=== PATIENT | male | born 1990 | race Caucasian/White ===

== ENCOUNTER 2017-10-25 12:20 | Emergency (ER) | payer SELFPAY ==
[~2017-10-25] VITALS: Ht 165.1 cm; Wt 64.0 kg
[2017-10-25 12:22] VITALS: BP 109/72
== END 2017-10-25 13:45 | disposition home or self-care (01) ==
LOC: ER 13:34
DX: F15.10 Other stimulant abuse, uncomplicated (principal); R45.1 Restlessness and agitation
CPT/HCPCS: 99283

== ENCOUNTER 2019-03-01 02:40 | Emergency (ER) | payer MEDICAID ==
[~2019-03-01] VITALS: Ht 167.6 cm; Wt 68.0 kg
[2019-03-01 07:47] VITALS: BP 120/69
== END 2019-03-01 07:48 | disposition home or self-care (01) ==
LOC: ER 02:40
DX: R19.7 Diarrhea, unspecified (principal); R10.84 Generalized abdominal pain; R50.9 Fever, unspecified
CPT/HCPCS: 99283; Z7610